=== PATIENT | male | born 1960 | race Caucasian/White ===

== ENCOUNTER 2017-10-09 13:34 | Inpatient (IN) | payer MEDICARE, MEDICAID ==
[~2017-10-09] VITALS: Ht 190.5 cm; Wt 156.0 kg
[2017-10-09 13:35] VITALS: BP 70/34
[2017-10-09 14:09] LABS: BASO % 0.4 % (0.0-1.0); EOS # 0.3 10*3/uL (0.0-0.4); HEMATOCRIT 43.4 % (42.0-52.0); HEMOGLOBIN 14.7 g/dl (14.0-18.0); LYMPH # 2.7 10*3/uL (1.3-4.4); LYMPH % 29.2 % (27.0-41.0); MEAN CELL VOLUME 95.8 fl (80.0-94.0); MEAN CORPUSCULAR HGB 32.5 pg (27.0-31.0); MEAN CORPUSCULAR HGB CONC 33.9 g/dl (33.0-37.0); MEAN PLATELET VOLUME 9.9 fl (9.6-12.3); MONO # 0.6 10*3/uL (0.1-1.0); MONO % 6.6 % (3.0-9.0); NEUT # 5.5 10*3/uL (2.3-7.9); NEUT % 60.1 % (47.0-73.0); PLATELET COUNT AUTOMATED 198 10*3/uL (130-400); RED BLOOD COUNT 4.53 10*6/uL (4.50-5.90); RED CELL DISTRI WIDTH 13.1 % (0-14.5); WHITE BLOOD COUNT 9.2 10*3/uL (4.8-10.8)
[2017-10-09 14:23] LABS: ALKALINE PHOSPHATASE 61 U/L (45-117); BUN 17 mg/dl (7-24); CHLORIDE 102 mmol/L (98-107); CREATININE 1.51 mg/dL (0.70-1.30); POTASSIUM 4.4 mmol/L (3.5-5.1); SGOT/AST 25 IU/L (3-35); SGPT/ALT 51 U/L (12-78); SODIUM 137 mmol/L (136-145); TOTAL PROTEIN 7.4 gm/dL (6.4-8.2)
[2017-10-09 14:25] LABS: ACT PARTIAL THROMBO TIME 24.9 SECONDS (20.8-31.5)
[2017-10-09 14:26] LABS: TROPONIN I < 0.015 ng/ml (<0.045)
[2017-10-09 14:27] VITALS: BP 95/58
[2017-10-09] MEDS ORDERED: PIOGLITAZONE HC45 MG PO (14:35)
[2017-10-09] MEDS ORDERED: GLIMEPIRIDE4 M1 PO (14:35)
[2017-10-09] MEDS ORDERED: LISINOPRIL20 MG PO (14:35)
[2017-10-09] MEDS ORDERED: GLUCOPHAGE1000 MG PO (14:36)
[2017-10-09] MEDS ORDERED: WELCHOL625 MG PO (14:36)
[2017-10-09 14:55] VITALS: BP 90/46
[2017-10-09 15:15] VITALS: BP 107/54
[2017-10-09 16:00] VITALS: BP 99/54
[2017-10-09 20:00] VITALS: BP 119/67
[2017-10-10] VITALS: BP 127/63
[2017-10-10 00:08] VITALS: BP 126/74
[2017-10-10 04:00] VITALS: BP 108/49
[2017-10-10 05:23] LABS: ALBUMIN 3.5 gm/dl (3.1-4.5); ALKALINE PHOSPHATASE 57 U/L (45-117); BUN 18 mg/dl (7-24); CHLORIDE 106 mmol/L (98-107); CHOLESTEROL 190 mg/dL (<200); CREATININE 1.06 mg/dL (0.70-1.30); FREE T4 0.79 ng/dl (0.76-1.46); HDL CHOLESTEROL 38 mg/dl (40-60); LDL CHOLESTEROL 87 mg/dL (9-159); PHOSPHOROUS 4.8 mg/dL (2.5-4.9); SGOT/AST 31 IU/L (3-35); SGPT/ALT 45 U/L (12-78); SODIUM 137 mmol/L (136-145); TOTAL PROTEIN 6.9 gm/dL (6.4-8.2); TRIGLYCERIDES 323 mg/dl (<150); VLDL CHOLESTEROL 65 mg/dL (6-40)
[2017-10-10 06:21] LABS: BASO % 0.3 % (0.0-1.0); EOS # 0.2 10*3/uL (0.0-0.4); EOS % 2.8 % (1.0-4.0); HEMATOCRIT 41.2 % (42.0-52.0); HEMOGLOBIN 13.7 g/dl (14.0-18.0); LYMPH # 2.4 10*3/uL (1.3-4.4); LYMPH % 34.5 % (27.0-41.0); MEAN CELL VOLUME 97.9 fl (80.0-94.0); MEAN CORPUSCULAR HGB 32.5 pg (27.0-31.0); MEAN CORPUSCULAR HGB CONC 33.3 g/dl (33.0-37.0); MEAN PLATELET VOLUME 10.1 fl (9.6-12.3); MONO # 0.7 10*3/uL (0.1-1.0); MONO % 10.1 % (3.0-9.0); NEUT # 3.6 10*3/uL (2.3-7.9); NEUT % 51.9 % (47.0-73.0); PLATELET COUNT AUTOMATED 141 10*3/uL (130-400); RED BLOOD COUNT 4.21 10*6/uL (4.50-5.90); RED CELL DISTRI WIDTH 13.1 % (0-14.5)
[2017-10-10 07:06] LABS: VITAMIN D, 25-HYDROXY 10.4 ng/mL (30-100)
[2017-10-10 08:00] VITALS: BP 122/76
[2017-10-10 12:00] VITALS: BP 124/71
[2017-10-10] MEDS ORDERED: ATORVASTATIN CA40 M1 PO (15:04)
[2017-10-10] MEDS ORDERED: VITAMIN D5000 UNI1 PO (15:04)
[2017-10-10] MEDS ORDERED: TOPROL XL25 MG PO (15:04)
[2017-10-10 16:00] VITALS: BP 120/59
== END 2017-10-10 16:00 | disposition home or self-care (01) | DRG 308 ==
LOC: ED 13:34 → EDHOLD 14:41 → ICCU 14:41
PROVIDERS: Emergency Medicine; Registered Nurse
DX: I47.1 Supraventricular tachycardia (principal); N17.0 Acute kidney failure with tubular necrosis; Z68.41 Body mass index [BMI] 40.0-44.9, adult; I10 Essential (primary) hypertension; E78.00 Pure hypercholesterolemia, unspecified; E66.01 Morbid (severe) obesity due to excess calories; E11.9 Type 2 diabetes mellitus without complications; E78.5 Hyperlipidemia, unspecified; Z96.651 Presence of right artificial knee joint; Z83.6 Family history of other diseases of the respiratory system; Z72.0 Tobacco use; Z79.84 Long term (current) use of oral hypoglycemic drugs